=== PATIENT | male | born 1965 | race Caucasian/White ===

== ENCOUNTER 2024-07-21 18:35 | Emergency (ER) | payer SELFPAY ==
--- OUTSIDE RECORDS SUMMARY | 2024-07-21 18:38 | XMS REPORT | Continuity of Care Document ---
Author Name Unknown Address [address] [place] [address] [facility] thconnect Address 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 Role Phone Davon GONZALEZ, Medina Wharton Primary Care Physician JOSÉ LUIS MARCUS Attending Clinician Unavailable LAB90 Attending Clinician Unavailable José Luis Machado Attending Clinician [phone] RAPHAEL PALACIOS Attending Clinician Unavailable Problems Condition Name Condition Details Condition Category Status Onset Date Resolution Date Last Treatment Date Treating Clinician Comments Source No known active problems No known active problems Disease Almita Ohara Allergies, Adverse Reactions, Alerts Allergy Name Allergy Type Status Severity Reaction(s) Onset Date Inactive Date Treating Clinician Comments Source NO KNOWN ALLERGIE S Drug Class Active [facility] Social History Social Habit Start Date Stop Date Quantity Comments Source Sex Ass[birth year] At 1965 00:00:00 1965 00:00:00 Almita Ohara Smoking Status Start Date Stop Date Source Never smoked tobacco Almita Ohara Medications Ordered Medication Name Filled Medication Name Start Date Stop Date Current Medication? Ordering Clinician Indication Dosage Frequency Signature (SIG) Comments Components Source No known medications 06-29 14:06: 58 No No known medication zack Ohara Vital Signs Vital Name Observation Time Observation Value Comments Zack hernandez Systolic blood pressure 2021-06-29 19:52:00 110 mm[Hg] Almita Ohara Diastolic blood pressure 2021-06-29 19:52:00 66 mm[Hg] Almita Seybo ld Heart rate 2021-06-29 19:52:00 90 /min Rain Ohara Body temperature 2021-06-29 19:52:00 37.56 Laurie Almita Ohara Respiratory rate 2021-06-29 19:52:00 16 /min Almita Ohara Body height 2021-06-29 19:52:00 193 cm Tiffanie Ohara Body weight 2021-06-29 19:52:00 131.09 kg Tiffanie Ohara BMI 2021-06-29 19:52:00 35.18 kg/m2 Tiffanie Ohara Encounters Start Date/Time End Date/Time Encounter Type Admission Type Attending [facility] Care Department Encounter ID Source 2021-10-05 08:30:00 2021-10-05 08:30:00 Outpatient JOSÉ LUIS MARCUS [id number] Almita Ohara 2021-07-05 00:00:00 2021-07-05 00:00:00 Outpatient JOSÉ LUIS MARCUS [id number] Almit[facility] 2021-07-05 00:00:00 2021-07-05 00:00:00 Outpatient JOSÉ LUIS MARCUS [id number] [facility]mit[facility] 2021-06-29 14:45:00 2021-06-29 14:45:00 Outpatient LAB90 ALMITA TOMAS [id number] Almita [facility] 2021-06-29 14:00:00 2021-06-29 14:30:00 Office Visit José Luis Marcus Jackson [id number] Almita [facility] 2020-08-26 23:35:00 2020-08-26 23:35:00 Emergency X [place] ERT [id number] [facility] 2020-08-05 15:40:00 2020-08-05 15:40:00 Emergency X RAPHAEL PALACIOS [facility] ERT [id number] [facility]
--- NOTE | 2024-07-21 19:37 | ER ---
Nurse's Notes [facility] Name: Abdoul Lopez Age: 59 yrs Sex: Male : 1965 Arrival Date: 07/21/2024 Time: 18:35 Bed DX4 Private MD: Diagnosis: Cutaneous abscess of back [any part, except buttock];Cellulitis of trunk;Sebaceous cyst Presentation: 07/21 19:23 Chief complaint: Patient states: Abscess to mid back onset 3 weeks ago. Pt reports cm10 chills at night. Coronavirus screen: Client denies travel out of the [place] in the last 14 days. Ebola Screen: Patient denies travel to an Ebola-affected area in the 21 days before illness onset. Initial Sepsis Screen: Does the patient meet any 2 criteria? No. Patient's initial sepsis screen is negative. Does the patient have a suspected source of infection? No. Patient's initial sepsis screen is negative. Risk Assessment: Do you want to hurt yourself or someone else? Patient reports no desire to harm self or others. Onset of symptoms was July 21, 2024. 19:23 Method Of Arrival: Ambulatory cm10 19:23 Acuity: LAITH 4 cm10 Triage Assessment: 19:24 General: Appears in no apparent distress. comfortable, Behavior is calm, cooperative. cm10 Pain: Complains of pain in back Pain currently is 8 out of 10 on a pain scale. Neuro: No deficits noted. Level of Consciousness is awake, alert, obeys commands, Oriented to person, place, time, situation, Appropriate for age. Respiratory: No deficits noted. Airway is patent Respiratory effort is even, unlabored, Respiratory pattern is regular, symmetrical. Derm: Abscess located on back. Historical: - Allergies: 19:24 No Known Allergies; cm10 - Home Meds: 19:24 None [Active]; cm10 - PMHx: 19:24 None; cm10 - PSHx: 19:24 None; cm10 - Immunization history:: Adult Immunizations up to date. - Infectious Disease History:: Denies. - Social history:: Smoking status: Patient denies any tobacco usage or history of. - Family history:: not pertinent. Screenin:25 [facility] ED Fall Risk Assessment (Adult) History of falling in the last 3 months, cm10 including since admission No falls in past 3 months (0 pts) Confusion or Disorientation No (0 pts) Intoxicated or Sedated No (0 pts) Impaired Gait No (0 pts) Mobility Assist Device Used No (0 pt) Altered Elimination No (0 pt) Score/Fall Risk Level 0 - 2 = Low Risk Oriented to surroundings, Maintained a safe environment, Hourly rounding (assess needs \T\ fall precautionary measures) done. Abuse screen: Denies threats or abuse. Denies injuries from another. Nutritional screening: No deficits noted. Tuberculosis screening: No symptoms or risk factors identified. Assessment: 19:45 General: Appears in no apparent distress. comfortable, Behavior is calm, cooperative. kb3 19:45 Derm: Abscess located on back. kb3 Vital Signs: 19:23 BP 137 / 94; Pulse 87; Resp 15; Temp 98.4; Pulse Ox 97% on R/A; Weight 136.08 kg; cm10 Height 6 ft. 4 in. ; Pain 8/10; 19:23 Body Mass Index 36.52 (136.08 kg, 193.04 cm) cm10 19:23 Pain Scale: Adult cm10 ED Course: 18:48 Patient arrived in ED. jj6 19:03 Sinan Avila MD is Attending Physician. [facility] 19:24 Triage completed. cm10 19:24 Arm band placed on right wrist. Patient placed in waiting room. cm10 19:25 Patient has correct armband on for positive identification. Provided Education on: ER cm10 process and procedures.. 19:36 Collins Vides MD is Referral Physician. [facility] 19:45 No provider procedures requiring assistance completed. Patient did not have IV access kb3 during this emergency room visit. Administered Medications: 19:57 Drug: Trimethoprim-Sulfamethoxazole PO (160 mg-800 mg (DS) 2 tablet PO once Route: PO; kb3 20:58 Follow up: Response: Medication Administered at Departure kb3 19:57 Drug: Cephalexin PO 500 mg PO once Route: PO; kb3 20:58 Follow up: Response: Medication Administered at Departure kb3 Medication: 19:25 VIS not applicable for this client. cm10 Outcome: 19:36 Discharge ordered by . [facility] 20:00 Discharged to home ambulatory, kb3 20:00 Condition: stable kb3 20:00 Discharge instructions given to patient, Instructed on discharge instructions, follow up and referral plans. medication usage, Demonstrated understanding of instructions, follow-up care, medications, Prescriptions given X 3, 21:02 Patient left the ED. kb3 Signatures: Sinan Avila MD MD cha Jeffries, Jennifer jj6 Kori Tucker, RN RN kb3 Malini Vides RN RN cm10 Corrections: (The following items were deleted from the chart) 21: 20:59 General: Appears in no apparent distress. comfortable, Behavior is calm, kb3 cooperative, kb3 21: 20:59 Derm: Abscess located on back kb3 kb3
--- NOTE | 2024-07-21 19:37 | EDPHYS ---
Physician Documentation [facility] Name: Abdoul Lopez Age: 59 yrs Sex: Male : 1965 Arrival Date: 07/21/2024 Time: 18:35 Bed DX4 Private MD: ED Physician Sinan Avila HPI: 07/21 19:26 This 59 yrs old Male presents to ER via Ambulatory with complaints of Abscess.abby 19:26 The patient presents with an abscess of the back, The patient presents with cellulitis abby of the back. Description: The affected area is moderate sized, confluent. Onset: The symptoms/episode began/occurred 3 day(s) ago. Possible cause(s): unknown. Associated signs and symptoms: The patient has no apparent associated signs or symptoms. Modifying factors: the symptoms are alleviated by remaining still, the symptoms are aggravated by squeezing the lesion and expressing the contents. Severity of symptoms: At their worst the symptoms were moderate, in the emergency department the symptoms are unchanged. The patient has not experienced similar symptoms in the past. Historical: - Allergies: 19:24 No Known Allergies; cm10 - Home Meds: 19:24 None [Active]; cm10 - PMHx: 19:24 None; cm10 - PSHx: 19:24 None; cm10 - Immunization history:: Adult Immunizations up to date. - Infectious Disease History:: Denies. - Social history:: Smoking status: Patient denies any tobacco usage or history of. - Family history:: not pertinent. ROS: 19:26 Constitutional: Negative for fever, chills, and weight loss, Eyes: Negative for injury, abby pain, redness, and discharge, ENT: Negative for injury, pain, and discharge, Neck: Negative for injury, pain, and swelling, Cardiovascular: Negative for chest pain, palpitations, and edema, Respiratory: Negative for shortness of breath, cough, wheezing, and pleuritic chest pain, Abdomen/GI: Negative for abdominal pain, nausea, vomiting, diarrhea, and constipation, Back: Negative for injury and pain, : Negative for injury, bleeding, discharge, and swelling, MS/Extremity: Negative for injury and deformity, Neuro: Negative for headache, weakness, numbness, tingling, and seizure, Psych: Negative for depression, anxiety, suicide ideation, homicidal ideation, and hallucinations, Allergy/Immunology: Negative for hives, rash, and allergies, Endocrine: Negative for neck swelling, polydipsia, polyuria, polyphagia, and marked weight changes, Hematologic/Lymphatic: Negative for swollen nodes, abnormal bleeding, and unusual bruising, 19:26 Skin: Positive for abscess, cellulitis, swelling, Exam: 19:26 Constitutional: This is a well developed, well nourished patient who is awake, alert, abby and in no acute distress. Head/Face: Normocephalic, atraumatic. Eyes: Pupils equal round and reactive to light, extra-ocular motions intact. Lids and lashes normal. Conjunctiva and sclera are non-icteric and not injected. Cornea within normal limits. Periorbital areas with no swelling, redness, or edema. ENT: Nares patent. No nasal discharge, no septal abnormalities noted. Tympanic membranes are normal and external auditory canals are clear. Oropharynx with no redness, swelling, or masses, exudates, or evidence of obstruction, uvula midline. Mucous membranes moist. Neck: Trachea midline, no thyromegaly or masses palpated, and no cervical lymphadenopathy. Supple, full range of motion without nuchal rigidity, or vertebral point tenderness. No Meningismus. Chest/axilla: Normal chest wall appearance and motion. Nontender with no deformity. No lesions are appreciated. Cardiovascular: Regular rate and rhythm with a normal S1 and S2. No gallops, murmurs, or rubs. Normal PMI, no JVD. No pulse deficits. Respiratory: Lungs have equal breath sounds bilaterally, clear to auscultation and percussion. No rales, rhonchi or wheezes noted. No increased work of breathing, no retractions or nasal flaring. Abdomen/GI: Soft, non-tender, with normal bowel sounds. No distension or tympany. No guarding or rebound. No evidence of tenderness throughout. Back: No spinal tenderness. No costovertebral tenderness. Full range of motion. Male : Normal genitalia with no discharge or lesions. MS/ Extremity: Pulses equal, no cyanosis. Neurovascular intact. Full, normal range of motion., bilateral aka Neuro: Awake and alert, GCS 15, oriented to person, place, time, and situation. Cranial nerves II-XII grossly intact. Motor strength 5/5 in all extremities. Sensory grossly intact. Cerebellar exam normal. Normal gait. Psych: Awake, alert, with orientation to person, place and time. Behavior, mood, and affect are within normal limits. 19:26 Skin: Appearance: Color: normal in color, Temperature: normal temperature, Moisture: normal moisture, abscess, that is moderate sized, approximately 5 cm(s), cellulitis, that is moderate, induration, that is moderate is noted, Vital Signs: 19:23 BP 137 / 94; Pulse 87; Resp 15; Temp 98.4; Pulse Ox 97% on R/A; Weight 136.08 kg; cm10 Height 6 ft. 4 in. ; Pain 8/10; 19:23 Body Mass Index 36.52 (136.08 kg, 193.04 cm) cm10 19:23 Pain Scale: Adult cm10 MDM: 19:03 Medical Screening Exam initiated [facility] 19:30 Differential diagnosis: abscess, cellulitis, insect bite. Data reviewed: vital signs, [facility] nurses notes. Consideration of Admission/Observation Escalation of care including admission/observation considered. I considered the following discharge prescriptions or medication management in the emergency department Medications were administered in the Emergency Department. See MAR. Administered Medications: 19:57 Drug: Trimethoprim-Sulfamethoxazole PO (160 mg-800 mg (DS) 2 tablet PO once Route: PO; kb3 20:58 Follow up: Response: Medication Administered at Departure kb3 19:57 Drug: Cephalexin PO 500 mg PO once Route: PO; kb3 20:58 Follow up: Response: Medication Administered at Departure kb3 Disposition Summary: 07/21/24 19:36 Discharge Ordered Notes: Location: Home [facility] Problem: new abby Symptoms: have improved abby Condition: Stable abby Diagnosis - Cutaneous abscess of back [any part, except buttock] abby - Cellulitis of trunk abby - Sebaceous cyst abby Followup: abby - With: Collins Vides MD - When: Tomorrow - Reason: Recheck today's complaints, Re-evaluation by your physician Discharge Instructions: - Discharge Summary Sheet abby - Skin Abscess abby - Cellulitis, Adult abby - Cellulitis, Adult, Vuss-ef-Dcam abby Forms: - Medication Reconciliation Form abby - Antibiotic Education abby - Prescription Opioid Use abby - Patient Portal Instructions abby - Leadership Thank You Letter [facility] Prescriptions: - Cephalexin 500 mg Oral Capsule - take 1 capsule ORAL route every 6 hours for 10 days; 40 capsule; Refills: 0, [facility] Product Selection Permitted - Ibuprofen 600 mg Oral Tablet - take 1 tablet ORAL route every 6 hours As needed take with food; 30 tablet; [facility] Refills: 0, Product Selection Permitted - Bactrim DS 800-160 mg Oral Tablet - take 1 tablet ORAL route every 12 hours for 10 days; 20 tablet; Refills: 0, [facility] Product Selection Permitted Signatures: Sinan Avila MD MD cha Bradberry, Kelly, ZACH RN kb3 Malini Vides RN RN cm10
[2024-07-21] MEDS ORDERED: CEPHALEXIN 250 MG CAP ONE (19:42)
[2024-07-21] MEDS ORDERED: SMZ./TMP. 800/160 MG TABLET ONE (19:43)
[2024-07-21 21:32] VITALS: BP 137/94; TEMP 98.4; O2SAT 97
== END 2024-07-21 21:02 | disposition home or self-care (01) ==
LOC: ER 18:35
DX: L02.212 Cutaneous abscess of back [any part, except buttock and flank] (principal); L03.319 Cellulitis of trunk, unspecified; L72.3 Sebaceous cyst